=== PATIENT | male | born 1955 | race Caucasian/White ===

== ENCOUNTER 2020-09-20 11:19 | Outpatient (CLI) | payer OTHER | END 2020-09-20 11:20 | disposition home or self-care (01) | LOC: BICRAD 11:19 | PROVIDERS: ATTEND Internal Medicine | DX: Z02.71 Encounter for disability determination (principal) ==

== ENCOUNTER 2021-02-23 10:56 | Inpatient (IN) | payer OTHER ==
[2021-02-23] MEDS ORDERED: Cefepime 2 GM VIAL ONE (11:29)
[2021-02-23] MEDS ORDERED: Vancomycin 1 GM/200 ML BAG ONE (11:30)
[2021-02-23 11:58] LABS: INR-International Normal Ratio 1.1; Prothrombin Time 13.9 sec (12.0-14.7)
[2021-02-23 11:59] LABS: PTT 25.6 sec (22.9-36.1)
[2021-02-23 12:05] LABS: #Eosinphils 0.3 thou/uL (0.0-0.7); #Monocytes 0.9 thou/uL (0.11-0.59); #Neutrophils 8.3 thou/uL (1.40-6.50); %Basophils 0.4 % (0.0-1.0); %Eosinophils 2.6 % (0.0-10.0); %Lymphocytes 9.9 % (21.0-51.0); %Monocytes 8.7 % (0.0-10.0); %Neutrophils 78.5 % (42.0-75.0); Hemoglobin 12.3 g/dL (14.0-18.0); MDiff Complete? YES; Macrocytosis MODERATE=16-30 cells (100X) (0-5/hpf); Mean Corpuscular HGB CONC 31.2 g/dL (32.0-36.0); Mean Corpuscular Hemoglobin 37.1 pg (27.0-31.0); Mean Platelet Volume 7.3 fL (7.4-10.4); Platelet Count 348 thou/uL (130-400); Platelet Morphology Comment Appears Adequate; Polychromasia SLIGHT = 2-3 cells (100X) (0-2/hpf); RBC Distribution Width 14.8 % (11.5-14.5); Red Blood Cell (RBC) Count 3.33 mill/uL (4.70-6.10); White Blood Cell (WBC) Count 10.6 thou/uL (4.8-10.8)
[2021-02-23 12:23] LABS: ALT (SGPT) 36 U/L (8-55); AST (SGOT) 49 U/L (5-34); Albumin 2.1 g/dL (3.4-4.8); Alkaline Phosphatase 201 U/L (40-110); Anion Gap 16 mmol/L (10-20); BUN (Urea Nitrogen) 12 mg/dL (8.4-25.7); Bilirubin, Total 0.8 mg/dL (0.2-1.2); Calc. Creatinine Clearance 0 mL/min (70-130); Calcium 7.8 mg/dL (7.8-10.44); Carbon Dioxide 23 mmol/L (23-31); Chloride 101 mmol/L (98-107); Globulin 2.7 g/dL (2.4-3.5); Glucose 122 mg/dL (80-115); Potassium 4.3 mmol/L (3.5-5.1); Protein, Total 4.8 g/dL (5.8-8.1); Sodium 136 mmol/L (136-145)
[2021-02-23] MEDS ORDERED: Acetaminophen 500 MG TAB ONE (12:46)
[2021-02-23] MEDS ORDERED: [UNRECOGNIZED DRUG - OTHER] IV SCH (13:15)
[2021-02-23] MEDS ORDERED: MULTIVITAMINS IV SCH (13:15)
[2021-02-23] MEDS ORDERED: THIAMINE HCL IV SCH (13:15)
[2021-02-23] MEDS ORDERED: FOLIC ACID IV SCH (13:15)
[2021-02-23 14:41] LABS: Lactic Acid 3.9 mmol/L (0.5-2.2)
[2021-02-23 15:24] LABS: Bilirubin Negative (Negative); Blood, Urine Negative (Negative); Clarity Clear (Clear); Glucose, Urine (Dipstick) Normal (Negative); Ketone, Urine Negative (Negative); Leukocyte Negative Leu/uL (Negative); Nitrite Negative (Negative); Protein, Urine (Dipstick) 10 mg/dL (Neg-Trace); Specific Gravity, Urine 1.012 (1.002-1.036)
[2021-02-23] MEDS ORDERED: Electrolyte Replacement Protocol 1 EACH FS SCH (17:15)
[2021-02-23 17:29] LABS: Magnesium 1.1 mg/dL (1.6-2.6); Phosphorus 3.3 mg/dL (2.3-4.7)
[2021-02-23] MEDS ORDERED: Electrolyte Replacement Protocol FS PRN (18:00)
[2021-02-23] MEDS ORDERED: Magnesium Sulfate 4 GM in Sodium Chloride 0.9% 250 ML 250 ML IVPB SCH (18:00)
[2021-02-23 19:02] LABS: SARS-CoV-2 NAA Rapid Test Not Detected (NotDetected)
[2021-02-23] MEDS ORDERED: Lorazepam 1 MG TAB PO PRN (19:59)
[2021-02-23] MEDS: Sodium Chloride 0.9% 1,000 ML IV SCH (20:04)
[2021-02-23] MEDS ORDERED: Norepinephrine 8 MG/0.9% NS 250 ML ONE (20:06)
[2021-02-23] MEDS ORDERED: Thiamine HCl 200 MG/2 ML VIAL IM SCH (20:15)
[2021-02-23 20:53] LABS: Troponin I 0.016 ng/mL (< 0.028)
[2021-02-23] MEDS ORDERED: Ketamine 50 MG/ML (10ML VIAL) ONE (21:08)
[2021-02-23] MEDS: Norepinephrine 8 MG/0.9% NS 250 ML IVPB SCH (21:48)
[2021-02-23 22:35] LABS: #Basophils 0.1 thou/uL (0.0-0.2); #Eosinphils 0.3 thou/uL (0.0-0.7); #Lymphocytes 1.3 thou/uL (1.20-3.40); #Monocytes 1.1 thou/uL (0.11-0.59); #Neutrophils 8.4 thou/uL (1.40-6.50); %Basophils 0.5 % (0.0-1.0); %Eosinophils 2.4 % (0.0-10.0); %Lymphocytes 11.8 % (21.0-51.0); %Monocytes 9.7 % (0.0-10.0); %Neutrophils 75.6 % (42.0-75.0); Hemoglobin 10.9 g/dL (14.0-18.0); Mean Corpuscular Hemoglobin 38.2 pg (27.0-31.0); Mean Platelet Volume 7.4 fL (7.4-10.4); Platelet Count 337 thou/uL (130-400); RBC Distribution Width 14.5 % (11.5-14.5); Red Blood Cell (RBC) Count 2.85 mill/uL (4.70-6.10); White Blood Cell (WBC) Count 11.1 thou/uL (4.8-10.8)
[2021-02-23 22:54] LABS: Anion Gap 12 mmol/L (10-20); BUN (Urea Nitrogen) 14 mg/dL (8.4-25.7); Calc. Creatinine Clearance 123 mL/min (70-130); Carbon Dioxide 25 mmol/L (23-31); Chloride 103 mmol/L (98-107); Glucose 130 mg/dL (80-115); Potassium 4.3 mmol/L (3.5-5.1); Sodium 136 mmol/L (136-145)
[2021-02-23 23:51] LABS: Troponin I Less than 0.010 ng/mL (< 0.028)
[2021-02-24] MEDS: Cefepime 2 GM in Sodium Chloride 0.9% 100 ML IVPB SCH ×3 (01:31→23:44)
[2021-02-24] MEDS: Atorvastatin Calcium 40 MG TAB PO SCH ×2 (01:32→20:06)
[2021-02-24] MEDS: VANCOMYCIN 2 GRAM/400 ML BAG 2 GM in Premix Bag 1 BAG IVPB SCH ×2 (02:36→15:06)
[2021-02-24] MEDS: Sodium Chloride 0.9% 1,000 ML IV SCH ×3 (02:39→20:07)
[2021-02-24] MEDS: Norepinephrine 8 MG/0.9% NS 250 ML IVPB SCH ×4 (03:50→20:08)
[2021-02-24 04:11] LABS: #Basophils 0.1 thou/uL (0.0-0.2); #Eosinphils 0.1 thou/uL (0.0-0.7); #Lymphocytes 1.8 thou/uL (1.20-3.40); #Monocytes 1.3 thou/uL (0.11-0.59); #Neutrophils 11.3 thou/uL (1.40-6.50); %Basophils 0.5 % (0.0-1.0); %Lymphocytes 12.3 % (21.0-51.0); %Monocytes 8.9 % (0.0-10.0); %Neutrophils 77.3 % (42.0-75.0); Hemoglobin 11.7 g/dL (14.0-18.0); Mean Corpuscular HGB CONC 32.2 g/dL (32.0-36.0); Mean Corpuscular Hemoglobin 38.8 pg (27.0-31.0); Mean Platelet Volume 7.7 fL (7.4-10.4); Platelet Count 416 thou/uL (130-400); RBC Distribution Width 14.6 % (11.5-14.5); Red Blood Cell (RBC) Count 3.01 mill/uL (4.70-6.10); White Blood Cell (WBC) Count 14.6 thou/uL (4.8-10.8)
[2021-02-24 04:16] LABS: Hemoglobin A1c 4.8 % (4.0-6.0)
[2021-02-24 04:45] LABS: ALT (SGPT) 39 U/L (8-55); AST (SGOT) 43 U/L (5-34); Albumin 2.2 g/dL (3.4-4.8); Alkaline Phosphatase 209 U/L (40-110); Anion Gap 15 mmol/L (10-20); BUN (Urea Nitrogen) 15 mg/dL (8.4-25.7); Bilirubin, Total 0.7 mg/dL (0.2-1.2); Calc. Creatinine Clearance 97 mL/min (70-130); Calcium 7.4 mg/dL (7.8-10.44); Carbon Dioxide 22 mmol/L (23-31); Chloride 101 mmol/L (98-107); Globulin 2.7 g/dL (2.4-3.5); Glucose 195 mg/dL (80-115); Magnesium 1.7 mg/dL (1.6-2.6); Phosphorus 4.2 mg/dL (2.3-4.7); Potassium 4.3 mmol/L (3.5-5.1); Protein, Total 4.9 g/dL (5.8-8.1); Sodium 134 mmol/L (136-145)
[2021-02-24] MEDS ORDERED: Magnesium 2 GM/50 ML 2 GM in Premix Bag 1 BAG IVPB SCH (06:30)
[2021-02-24] MEDS: Enoxaparin Sodium 40 MG/0.4 ML SYRINGE SC SCH (08:04)
[2021-02-24] MEDS: Folic Acid 1 MG TAB PO SCH (08:04)
[2021-02-24] MEDS: Multivitamin W/ Minerals 1 TAB PO SCH (08:04)
[2021-02-24] MEDS: Magnesium Oxide 400 MG TAB PO SCH (08:04)
[2021-02-24] MEDS: Lorazepam 0.5 MG TAB PO PRN (08:04)
[2021-02-24] MEDS ORDERED: Diazepam 10 MG/2 ML SYRINGE IVP SCH ×4 (08:30→21:00)
[2021-02-24] MEDS ORDERED: Thiamine 100 MG TAB PO SCH (09:00)
[2021-02-24] MEDS ORDERED: Dextrose 5% in Water 1,000 ML IV PRN (09:08)
[2021-02-24] MEDS ORDERED: Dextrose 50% Abboject 50 ML SYRINGE SLOW IVP PRN (09:08)
[2021-02-24] MEDS ORDERED: Hydrocortisone Sod Succ/PF 100 mg/2 ml Vial IVP SCH (09:15)
[2021-02-24] MEDS: Hydrocortisone Sod Succ/PF 100 mg/2 ml Vial IVP SCH ×3 (10:04→20:07)
[2021-02-24] MEDS ORDERED: Pantoprazole 40 MG VIAL IVP SCH (11:00)
[2021-02-24] MEDS: HumaLOG 300 UNITS/3 ML VIAL SC PRN ×2 (11:43→17:34)
[2021-02-25 00:29] LABS: Vancomycin, Trough 23.9 ug/mL
[2021-02-25] MEDS: traMADol HCl 50 MG TAB PO PRN (00:44)
[2021-02-25] MEDS: VANCOMYCIN 2 GRAM/400 ML BAG 2 GM in Premix Bag 1 BAG IVPB SCH ×2 (00:45→00:50)
[2021-02-25] MEDS: Hydrocortisone Sod Succ/PF 100 mg/2 ml Vial IVP SCH ×4 (02:34→22:23)
[2021-02-25] MEDS: Vancomycin 1.5 GRAM/300 ML BAG 1.5 GM in Premix Bag 1 BAG IVPB SCH ×2 (02:34→22:20)
[2021-02-25] MEDS: Lorazepam 0.5 MG TAB PO PRN (02:34)
[2021-02-25] MEDS: Sodium Chloride 0.9% 1,000 ML IV SCH ×3 (02:35→22:21)
[2021-02-25 05:02] LABS: #Lymphocytes 0.7 thou/uL (1.20-3.40); #Monocytes 0.5 thou/uL (0.11-0.59); #Neutrophils 7.5 thou/uL (1.40-6.50); %Basophils 0.1 % (0.0-1.0); %Eosinophils 0.2 % (0.0-10.0); %Lymphocytes 7.8 % (21.0-51.0); %Neutrophils 85.9 % (42.0-75.0); Hemoglobin 9.9 g/dL (14.0-18.0); Mean Corpuscular HGB CONC 31.7 g/dL (32.0-36.0); Platelet Count 343 thou/uL (130-400); RBC Distribution Width 14.3 % (11.5-14.5); Red Blood Cell (RBC) Count 2.61 mill/uL (4.70-6.10); White Blood Cell (WBC) Count 8.7 thou/uL (4.8-10.8)
[2021-02-25 05:21] LABS: ALT (SGPT) 34 U/L (8-55); AST (SGOT) 34 U/L (5-34); Albumin 2.1 g/dL (3.4-4.8); Alkaline Phosphatase 187 U/L (40-110); Anion Gap 14 mmol/L (10-20); BUN (Urea Nitrogen) 20 mg/dL (8.4-25.7); Bilirubin, Total 0.5 mg/dL (0.2-1.2); Calc. Creatinine Clearance 81 mL/min (70-130); Carbon Dioxide 22 mmol/L (23-31); Chloride 107 mmol/L (98-107); Globulin 2.4 g/dL (2.4-3.5); Glucose 193 mg/dL (80-115); Magnesium 1.9 mg/dL (1.6-2.6); Phosphorus 4.3 mg/dL (2.3-4.7); Potassium 4.8 mmol/L (3.5-5.1); Protein, Total 4.5 g/dL (5.8-8.1); Sodium 138 mmol/L (136-145)
[2021-02-25] MEDS ORDERED: Diazepam 10 MG/2 ML SYRINGE IVP SCH (06:00)
[2021-02-25] MEDS ORDERED: Magnesium 2 GM/50 ML 2 GM in Premix Bag 1 BAG IVPB SCH (06:45)
[2021-02-25] MEDS: Enoxaparin Sodium 40 MG/0.4 ML SYRINGE SC SCH (09:24)
[2021-02-25] MEDS: Magnesium Oxide 400 MG TAB PO SCH (09:24)
[2021-02-25] MEDS: Multivitamin W/ Minerals 1 TAB PO SCH (09:25)
[2021-02-25] MEDS: Folic Acid 1 MG TAB PO SCH (09:25)
[2021-02-25] MEDS: Thiamine 100 MG TAB PO SCH (09:25)
[2021-02-25] MEDS: Pantoprazole 40 MG VIAL IVP SCH (09:28)
[2021-02-25] MEDS: Diazepam 10 MG/2 ML SYRINGE IVP SCH (09:38)
[2021-02-25] MEDS ORDERED: Midodrine HCl 5 MG TAB PO SCH (12:50)
[2021-02-25] MEDS: Midodrine HCl 5 MG TAB PO SCH (20:58)
[2021-02-25] MEDS: Atorvastatin Calcium 40 MG TAB PO SCH (20:58)
[2021-02-25] MEDS: Cefepime 2 GM in Sodium Chloride 0.9% 100 ML IVPB SCH ×2 (22:20→23:28)
[2021-02-26] MEDS: Midodrine HCl 5 MG TAB PO SCH ×2 (09:00→21:27)
[2021-02-26] MEDS: Enoxaparin Sodium 40 MG/0.4 ML SYRINGE SC SCH (09:00)
[2021-02-26] MEDS: Pantoprazole 40 MG VIAL IVP SCH (09:00)
[2021-02-26] MEDS: Hydrocortisone Sod Succ/PF 100 mg/2 ml Vial IVP SCH (09:00)
[2021-02-26] MEDS: Thiamine 100 MG TAB PO SCH (09:00)
[2021-02-26] MEDS: Multivitamin W/ Minerals 1 TAB PO SCH ×3 (09:00→11:27)
[2021-02-26] MEDS: Magnesium Oxide 400 MG TAB PO SCH (09:00)
[2021-02-26] MEDS: Folic Acid 1 MG TAB PO SCH (09:00)
[2021-02-26 09:04] LABS: Mean Corpuscular HGB CONC 32.1 g/dL (32.0-36.0); Mean Corpuscular Hemoglobin 38.6 pg (27.0-31.0); Mean Platelet Volume 6.9 fL (7.4-10.4); Platelet Count 345 thou/uL (130-400); RBC Distribution Width 14.5 % (11.5-14.5); Red Blood Cell (RBC) Count 2.84 mill/uL (4.70-6.10); White Blood Cell (WBC) Count 8.5 thou/uL (4.8-10.8)
[2021-02-26 09:50] LABS: Band 4 % (5-11); Lymphocytes 13 % (21-51); MDiff Complete? YES; Monocytes 8 % (0-10); Neutrophil 75 % (42-75); Platelet Morphology Comment Appears Adequate; Vacuoles SLIGHT
[2021-02-26 10:03] LABS: ALT (SGPT) 38 U/L (8-55); AST (SGOT) 45 U/L (5-34); Albumin 2.3 g/dL (3.4-4.8); Alkaline Phosphatase 183 U/L (40-110); BUN (Urea Nitrogen) 25 mg/dL (8.4-25.7); Bilirubin, Total 0.5 mg/dL (0.2-1.2); Calc. Creatinine Clearance 89 mL/min (70-130); Calcium 7.7 mg/dL (7.8-10.44); Carbon Dioxide 15 mmol/L (23-31); Chloride 113 mmol/L (98-107); Globulin 3.1 g/dL (2.4-3.5); Glucose 133 mg/dL (80-115); Magnesium 2.4 mg/dL (1.6-2.6); Phosphorus 4.6 mg/dL (2.3-4.7); Potassium 4.7 mmol/L (3.5-5.1); Protein, Total 5.4 g/dL (5.8-8.1); Sodium 139 mmol/L (136-145)
[2021-02-26 10:36] LABS: Anion Gap 16 mmol/L (10-20)
[2021-02-26] MEDS: Sodium Chloride 0.9% 1,000 ML IV SCH ×3 (11:19→21:28)
[2021-02-26] MEDS: Diazepam 10 MG/2 ML SYRINGE IVP SCH (11:49)
[2021-02-26] MEDS: Cefepime 2 GM in Sodium Chloride 0.9% 100 ML IVPB SCH ×2 (11:52→23:57)
[2021-02-26 15:40] LABS: Vancomycin, Trough 34.5 ug/mL
[2021-02-26] MEDS: Vancomycin 1.5 GRAM/300 ML BAG 1.5 GM in Premix Bag 1 BAG IVPB SCH ×2 (15:52→20:07)
[2021-02-26] MEDS ORDERED: Vancomycin 1.5 GRAM/300 ML BAG 1.5 GM in Premix Bag 1 BAG IVPB SCH (16:30)
[2021-02-26] MEDS: Atorvastatin Calcium 40 MG TAB PO SCH (21:27)
[2021-02-26] MEDS ORDERED: Lorazepam 2 MG/ML VIAL SLOW IVP SCH (22:15)
[2021-02-26] MEDS ORDERED: Lorazepam 2 MG/ML VIAL ONE (22:59)
[2021-02-27] MEDS: Sodium Chloride 0.9% 1,000 ML IV SCH ×3 (04:52→22:03)
[2021-02-27 06:26] LABS: #Eosinphils 0.2 thou/uL (0.0-0.7); #Lymphocytes 1.1 thou/uL (1.20-3.40); #Monocytes 0.8 thou/uL (0.11-0.59); #Neutrophils 4.5 thou/uL (1.40-6.50); %Basophils 0.6 % (0.0-1.0); %Eosinophils 2.8 % (0.0-10.0); %Lymphocytes 16.2 % (21.0-51.0); %Monocytes 11.6 % (0.0-10.0); %Neutrophils 68.7 % (42.0-75.0); Mean Corpuscular HGB CONC 32.3 g/dL (32.0-36.0); Mean Corpuscular Hemoglobin 38.9 pg (27.0-31.0); Mean Platelet Volume 6.7 fL (7.4-10.4); Platelet Count 347 thou/uL (130-400); RBC Distribution Width 14.7 % (11.5-14.5); Red Blood Cell (RBC) Count 2.57 mill/uL (4.70-6.10); White Blood Cell (WBC) Count 6.5 thou/uL (4.8-10.8)
[2021-02-27 06:47] LABS: ALT (SGPT) 43 U/L (8-55); AST (SGOT) 48 U/L (5-34); Albumin 2.2 g/dL (3.4-4.8); Alkaline Phosphatase 149 U/L (40-110); Anion Gap 9 mmol/L (10-20); BUN (Urea Nitrogen) 25 mg/dL (8.4-25.7); Bilirubin, Total 0.4 mg/dL (0.2-1.2); Calc. Creatinine Clearance 118 mL/min (70-130); Calcium 7.9 mg/dL (7.8-10.44); Carbon Dioxide 24 mmol/L (23-31); Chloride 112 mmol/L (98-107); Globulin 2.3 g/dL (2.4-3.5); Glucose 91 mg/dL (80-115); Magnesium 2.3 mg/dL (1.6-2.6); Phosphorus 4.2 mg/dL (2.3-4.7); Potassium 3.9 mmol/L (3.5-5.1); Protein, Total 4.5 g/dL (5.8-8.1); Sodium 141 mmol/L (136-145)
[2021-02-27] MEDS: Thiamine 100 MG TAB PO SCH (11:32)
[2021-02-27] MEDS: Multivitamin W/ Minerals 1 TAB PO SCH (11:32)
[2021-02-27] MEDS: Magnesium Oxide 400 MG TAB PO SCH (11:32)
[2021-02-27] MEDS: Folic Acid 1 MG TAB PO SCH (11:32)
[2021-02-27] MEDS: Midodrine HCl 5 MG TAB PO SCH (11:33)
[2021-02-27] MEDS: Enoxaparin Sodium 40 MG/0.4 ML SYRINGE SC SCH (11:34)
[2021-02-27] MEDS: Cefepime 2 GM in Sodium Chloride 0.9% 100 ML IVPB SCH (12:00)
[2021-02-27] MEDS: traMADol HCl 50 MG TAB PO PRN (14:48)
[2021-02-27 15:23] LABS: Vancomycin, Trough 23.1 ug/mL
[2021-02-27 16:21] LABS: Actual Bicarbonate (HCO3a) 23.4 mEq/L (22-28); CO2 Tension 42.4 mmHg (35.0-45.0); Carboxyhemoglobin (COHb) 0.3 gm% (0.0-3.0); Hemoglobin (Hb) 10.7 g/dL (14.0-18.0); O2 Tension (PaO2), arterial 66.4 mmHg (> 80.0); Potassium - ABG Lab 3.61 mmol/L (3.70-5.30); pH, Arterial 7.36 (7.35-7.45)
[2021-02-27 16:26] LABS: Puncture Site RRA
[2021-02-27] MEDS: Vancomycin 1 GM in Premix Bag 1 BAG IVPB SCH (17:00)
[2021-02-27] MEDS: Atorvastatin Calcium 40 MG TAB PO SCH (22:00)
[2021-02-28] MEDS: Cefepime 2 GM in Sodium Chloride 0.9% 100 ML IVPB SCH (01:14)
[2021-02-28] MEDS: Sodium Chloride 0.9% 1,000 ML IV SCH ×2 (03:45→15:18)
[2021-02-28] MEDS: Vancomycin 1 GM in Premix Bag 1 BAG IVPB SCH (04:33)
[2021-02-28 06:02] LABS: #Eosinphils 0.7 thou/uL (0.0-0.7); #Lymphocytes 1.2 thou/uL (1.20-3.40); #Monocytes 0.6 thou/uL (0.11-0.59); #Neutrophils 5.2 thou/uL (1.40-6.50); %Basophils 0.4 % (0.0-1.0); %Eosinophils 8.6 % (0.0-10.0); %Lymphocytes 15.7 % (21.0-51.0); %Monocytes 8.2 % (0.0-10.0); %Neutrophils 67.1 % (42.0-75.0); Hemoglobin 10.3 g/dL (14.0-18.0); Mean Corpuscular HGB CONC 31.7 g/dL (32.0-36.0); Mean Corpuscular Hemoglobin 37.8 pg (27.0-31.0); Mean Platelet Volume 6.7 fL (7.4-10.4); Platelet Count 406 thou/uL (130-400); RBC Distribution Width 14.6 % (11.5-14.5); Red Blood Cell (RBC) Count 2.74 mill/uL (4.70-6.10); White Blood Cell (WBC) Count 7.7 thou/uL (4.8-10.8)
[2021-02-28 06:32] LABS: ALT (SGPT) 59 U/L (8-55); AST (SGOT) 62 U/L (5-34); Albumin 2.2 g/dL (3.4-4.8); Alkaline Phosphatase 154 U/L (40-110); Anion Gap 8 mmol/L (10-20); BUN (Urea Nitrogen) 24 mg/dL (8.4-25.7); Bilirubin, Total 0.4 mg/dL (0.2-1.2); Calc. Creatinine Clearance 143 mL/min (70-130); Calcium 8.4 mg/dL (7.8-10.44); Carbon Dioxide 24 mmol/L (23-31); Chloride 113 mmol/L (98-107); Globulin 2.6 g/dL (2.4-3.5); Glucose 116 mg/dL (80-115); Potassium 3.9 mmol/L (3.5-5.1); Protein, Total 4.8 g/dL (5.8-8.1); Sodium 141 mmol/L (136-145)
[2021-02-28] MEDS: Folic Acid 1 MG TAB PO SCH ×2 (09:02→09:40)
[2021-02-28] MEDS: Magnesium Oxide 400 MG TAB PO SCH (09:02)
[2021-02-28] MEDS: Thiamine 100 MG TAB PO SCH ×2 (09:02→09:42)
[2021-02-28] MEDS: Enoxaparin Sodium 40 MG/0.4 ML SYRINGE SC SCH (09:12)
[2021-02-28] MEDS ORDERED: Morphine 2 MG/ML VIAL SLOW IVP SCH (14:45)
[2021-02-28] MEDS: Atorvastatin Calcium 40 MG TAB PO SCH (20:25)
[2021-02-28] MEDS: Morphine 2 MG/ML VIAL SLOW IVP PRN (21:45)
[2021-03-01] MEDS: Sodium Chloride 0.9% 1,000 ML IV SCH (04:12)
[2021-03-01] MEDS: Morphine 2 MG/ML VIAL SLOW IVP PRN ×3 (05:19→15:17)
[2021-03-01 07:17] LABS: ALT (SGPT) 59 U/L (8-55); AST (SGOT) 57 U/L (5-34); Albumin 2.3 g/dL (3.4-4.8); Alkaline Phosphatase 158 U/L (40-110); Anion Gap 12 mmol/L (10-20); BUN (Urea Nitrogen) 19 mg/dL (8.4-25.7); Bilirubin, Total 0.5 mg/dL (0.2-1.2); Calc. Creatinine Clearance 259 mL/min (70-130); Calcium 8.2 mg/dL (7.8-10.44); Carbon Dioxide 22 mmol/L (23-31); Chloride 114 mmol/L (98-107); Globulin 2.4 g/dL (2.4-3.5); Glucose 86 mg/dL (80-115); Potassium 4.1 mmol/L (3.5-5.1); Protein, Total 4.7 g/dL (5.8-8.1); Sodium 144 mmol/L (136-145)
[2021-03-01] MEDS ORDERED: Furosemide 40 MG/4 ML VIAL SLOW IVP SCH (08:45)
[2021-03-01] MEDS: Enoxaparin Sodium 40 MG/0.4 ML SYRINGE SC SCH (09:08)
[2021-03-01] MEDS: Magnesium Oxide 400 MG TAB PO SCH (09:08)
[2021-03-01] MEDS: Folic Acid 1 MG TAB PO SCH (09:08)
[2021-03-01] MEDS: Thiamine HCl 200 MG/2 ML VIAL SLOW IVP SCH (11:31)
[2021-03-01] MEDS: Furosemide 40 MG/4 ML VIAL SLOW IVP SCH (15:17)
[2021-03-01] MEDS: Mirtazapine 30 MG TAB PO SCH (19:55)
[2021-03-01] MEDS: Atorvastatin Calcium 40 MG TAB PO SCH (19:56)
[2021-03-02] MEDS: Furosemide 40 MG/4 ML VIAL SLOW IVP SCH (04:34)
[2021-03-02] MEDS: Multivitamin W/ Minerals 1 TAB PO SCH (10:27)
[2021-03-02] MEDS: Enoxaparin Sodium 40 MG/0.4 ML SYRINGE SC SCH (10:27)
[2021-03-02] MEDS: Folic Acid 1 MG TAB PO SCH (10:28)
[2021-03-02] MEDS: Magnesium Oxide 400 MG TAB PO SCH (10:28)
[2021-03-02] MEDS: Thiamine HCl 200 MG/2 ML VIAL SLOW IVP SCH (10:28)
[2021-03-02] MEDS: Sodium Chloride 0.9% 1,000 ML IV SCH (11:01)
[2021-03-02] MEDS ORDERED: Lorazepam 2 MG/ML VIAL SLOW IVP PRN (11:48)
[2021-03-02] MEDS: Morphine 2 MG/ML VIAL SLOW IVP PRN (14:03)
[2021-03-02] MEDS ORDERED: Bisacodyl 10 MG SUPP PR SCH (19:30)
[2021-03-02] MEDS: Atorvastatin Calcium 40 MG TAB PO SCH (19:52)
[2021-03-02] MEDS: Senokot S 8.6-50 MG TAB PO SCH (19:52)
[2021-03-02] MEDS: Mirtazapine 30 MG TAB PO SCH (19:53)
[2021-03-02] MEDS: traMADol HCl 50 MG TAB PO PRN (19:55)
[2021-03-03 07:22] LABS: ALT (SGPT) 46 U/L (8-55); AST (SGOT) 36 U/L (5-34); Albumin 2.1 g/dL (3.4-4.8); Alkaline Phosphatase 140 U/L (40-110); Anion Gap 8 mmol/L (10-20); BUN (Urea Nitrogen) 16 mg/dL (8.4-25.7); Bilirubin, Total 0.4 mg/dL (0.2-1.2); Calc. Creatinine Clearance 279 mL/min (70-130); Carbon Dioxide 28 mmol/L (23-31); Chloride 112 mmol/L (98-107); Globulin 2.3 g/dL (2.4-3.5); Glucose 111 mg/dL (80-115); Potassium 3.3 mmol/L (3.5-5.1); Protein, Total 4.4 g/dL (5.8-8.1); Sodium 145 mmol/L (136-145)
[2021-03-03] MEDS ORDERED: Potassium Chloride 20 MEQ TAB PO SCH ×2 (08:00→10:45)
[2021-03-03] MEDS: Enoxaparin Sodium 40 MG/0.4 ML SYRINGE SC SCH (09:32)
[2021-03-03] MEDS: Multivitamin W/ Minerals 1 TAB PO SCH (09:33)
[2021-03-03] MEDS: Magnesium Oxide 400 MG TAB PO SCH (09:33)
[2021-03-03] MEDS: Senokot S 8.6-50 MG TAB PO SCH ×2 (09:33→22:04)
[2021-03-03] MEDS: Furosemide 40 MG/4 ML VIAL SLOW IVP SCH (09:34)
[2021-03-03] MEDS: Folic Acid 1 MG TAB PO SCH (09:34)
[2021-03-03] MEDS: Thiamine HCl 200 MG/2 ML VIAL SLOW IVP SCH (09:43)
[2021-03-03 14:17] LABS: SARS-CoV-2 PCR by NAA Not Detected (NotDetected)
[2021-03-03] MEDS: traMADol HCl 50 MG TAB PO PRN ×2 (15:01→21:46)
[2021-03-03] MEDS: Atorvastatin Calcium 40 MG TAB PO SCH (21:45)
[2021-03-03] MEDS: Mirtazapine 30 MG TAB PO SCH (21:46)
[2021-03-04] MEDS: Thiamine HCl 200 MG/2 ML VIAL SLOW IVP SCH (10:15)
[2021-03-04] MEDS: Multivitamin W/ Minerals 1 TAB PO SCH (10:15)
[2021-03-04] MEDS: Furosemide 40 MG/4 ML VIAL SLOW IVP SCH (10:15)
[2021-03-04] MEDS: Enoxaparin Sodium 40 MG/0.4 ML SYRINGE SC SCH (10:15)
[2021-03-04] MEDS: Folic Acid 1 MG TAB PO SCH (10:15)
[2021-03-04] MEDS: Senokot S 8.6-50 MG TAB PO SCH ×2 (12:09→22:21)
[2021-03-04] MEDS: Magnesium Oxide 400 MG TAB PO SCH (12:09)
[2021-03-04] MEDS: traMADol HCl 50 MG TAB PO PRN ×2 (13:36→21:39)
[2021-03-04] MEDS: Mirtazapine 30 MG TAB PO SCH (21:39)
[2021-03-04] MEDS: Atorvastatin Calcium 40 MG TAB PO SCH (21:39)
[2021-03-05] MEDS: Furosemide 20 MG/2 ML VIAL SLOW IVP SCH ×2 (05:41→14:00)
[2021-03-05] MEDS: traMADol HCl 50 MG TAB PO PRN ×2 (05:47→20:49)
[2021-03-05 06:39] LABS: Anion Gap 11 mmol/L (10-20); BUN (Urea Nitrogen) 17 mg/dL (8.4-25.7); Calc. Creatinine Clearance 270 mL/min (70-130); Calcium 7.9 mg/dL (7.8-10.44); Carbon Dioxide 26 mmol/L (23-31); Chloride 110 mmol/L (98-107); Glucose 116 mg/dL (80-115); Potassium 3.5 mmol/L (3.5-5.1); Sodium 143 mmol/L (136-145)
[2021-03-05] MEDS ORDERED: Potassium Chloride 20 MEQ TAB PO SCH (07:15)
[2021-03-05] MEDS: Thiamine 100 MG TAB PO SCH (10:24)
[2021-03-05] MEDS: Magnesium Oxide 400 MG TAB PO SCH (10:24)
[2021-03-05] MEDS: Enoxaparin Sodium 40 MG/0.4 ML SYRINGE SC SCH (10:24)
[2021-03-05] MEDS: Folic Acid 1 MG TAB PO SCH (10:24)
[2021-03-05] MEDS: Senokot S 8.6-50 MG TAB PO SCH ×2 (10:25→20:50)
[2021-03-05] MEDS: Multivitamin W/ Minerals 1 TAB PO SCH (10:25)
[2021-03-05] MEDS: Atorvastatin Calcium 40 MG TAB PO SCH (20:49)
[2021-03-05] MEDS: Mirtazapine 30 MG TAB PO SCH (20:50)
[2021-03-06] MEDS: Furosemide 20 MG/2 ML VIAL SLOW IVP SCH ×2 (05:41→14:43)
[2021-03-06] MEDS: Morphine 2 MG/ML VIAL SLOW IVP PRN ×2 (05:41→20:50)
[2021-03-06] MEDS: Enoxaparin Sodium 40 MG/0.4 ML SYRINGE SC SCH (09:43)
[2021-03-06] MEDS: Folic Acid 1 MG TAB PO SCH (09:44)
[2021-03-06] MEDS: Magnesium Oxide 400 MG TAB PO SCH (09:44)
[2021-03-06] MEDS: traMADol HCl 50 MG TAB PO PRN (09:44)
[2021-03-06] MEDS: Multivitamin W/ Minerals 1 TAB PO SCH (09:44)
[2021-03-06] MEDS: Senokot S 8.6-50 MG TAB PO SCH ×2 (09:44→20:50)
[2021-03-06] MEDS: Thiamine 100 MG TAB PO SCH (09:44)
[2021-03-06] MEDS: Atorvastatin Calcium 40 MG TAB PO SCH (20:49)
[2021-03-06] MEDS: Mirtazapine 30 MG TAB PO SCH (20:50)
[2021-03-07] MEDS: Furosemide 20 MG/2 ML VIAL SLOW IVP SCH ×2 (04:44→15:09)
[2021-03-07 06:59] LABS: #Basophils 0.1 thou/uL (0.0-0.2); #Eosinphils 0.3 thou/uL (0.0-0.7); #Monocytes 1.4 thou/uL (0.11-0.59); #Neutrophils 7.5 thou/uL (1.40-6.50); %Basophils 0.7 % (0.0-1.0); %Eosinophils 2.8 % (0.0-10.0); %Monocytes 12.2 % (0.0-10.0); %Neutrophils 66.3 % (42.0-75.0); Hemoglobin 10.3 g/dL (14.0-18.0); Mean Corpuscular HGB CONC 32.2 g/dL (32.0-36.0); Mean Corpuscular Hemoglobin 37.9 pg (27.0-31.0); Mean Platelet Volume 7.8 fL (7.4-10.4); Platelet Count 449 thou/uL (130-400); RBC Distribution Width 14.5 % (11.5-14.5); Red Blood Cell (RBC) Count 2.71 mill/uL (4.70-6.10); White Blood Cell (WBC) Count 11.2 thou/uL (4.8-10.8)
[2021-03-07 07:13] LABS: Anion Gap 14 mmol/L (10-20); BUN (Urea Nitrogen) 18 mg/dL (8.4-25.7); Calc. Creatinine Clearance 266 mL/min (70-130); Calcium 7.5 mg/dL (7.8-10.44); Carbon Dioxide 28 mmol/L (23-31); Chloride 104 mmol/L (98-107); Glucose 83 mg/dL (80-115); Potassium 3.6 mmol/L (3.5-5.1); Sodium 142 mmol/L (136-145)
[2021-03-07] MEDS: Enoxaparin Sodium 40 MG/0.4 ML SYRINGE SC SCH (08:44)
[2021-03-07] MEDS: Senokot S 8.6-50 MG TAB PO SCH ×2 (08:44→20:21)
[2021-03-07] MEDS: Folic Acid 1 MG TAB PO SCH (08:44)
[2021-03-07] MEDS: Magnesium Oxide 400 MG TAB PO SCH (08:44)
[2021-03-07] MEDS: Thiamine 100 MG TAB PO SCH (08:44)
[2021-03-07] MEDS: Multivitamin W/ Minerals 1 TAB PO SCH (08:44)
[2021-03-07] MEDS: traMADol HCl 50 MG TAB PO PRN ×2 (14:25→20:24)
[2021-03-07 15:16] VITALS: BMI 54.2
[2021-03-07] MEDS: Atorvastatin Calcium 40 MG TAB PO SCH (20:21)
[2021-03-07] MEDS: Mirtazapine 30 MG TAB PO SCH (20:21)
[2021-03-08] MEDS ORDERED: Lisinopril 20 MG TAB PO SCH (09:00)
[2021-03-08] MEDS: Enoxaparin Sodium 40 MG/0.4 ML SYRINGE SC SCH (09:02)
[2021-03-08] MEDS: Thiamine 100 MG TAB PO SCH (09:02)
[2021-03-08] MEDS: Folic Acid 1 MG TAB PO SCH (09:02)
[2021-03-08] MEDS: Senokot S 8.6-50 MG TAB PO SCH (09:02)
[2021-03-08] MEDS: Magnesium Oxide 400 MG TAB PO SCH (09:02)
[2021-03-08] MEDS: Multivitamin W/ Minerals 1 TAB PO SCH (09:03)
[2021-03-08 11:46] VITALS: BP 105/73; TEMP 98.2
== END 2021-03-08 15:50 | DRG 871 ==
LOC: ERS 10:56 → ERHOLD 16:39 → OBSVTOIN 16:39 → CCU 02-24 01:03 → SURG A 02-25 17:26
PROVIDERS: ADMIT Internal Medicine; ATTEND Internal Medicine
PROC: 06HY33Z Insertion of Infusion Device into Lower Vein, Percutaneous Approach (ICD-10-PCS; principal; 2021-02-23)
PROC: 3E033XZ Introduction of Vasopressor into Peripheral Vein, Percutaneous Approach (ICD-10-PCS; 2021-02-23)
PROC: HZ2ZZZZ Detoxification Services for Substance Abuse Treatment (ICD-10-PCS; 2021-02-23)
DX: A41.9 Sepsis, unspecified organism (principal); G93.41 Metabolic encephalopathy; R57.1 Hypovolemic shock; F10.139 Alcohol abuse with withdrawal, unspecified; Z68.43 Body mass index [BMI] 50.0-59.9, adult; E87.2 Acidosis; Z66 Do not resuscitate; Z20.822 Contact with and (suspected) exposure to COVID-19; I10 Essential (primary) hypertension; E78.5 Hyperlipidemia, unspecified; G47.33 Obstructive sleep apnea (adult) (pediatric); D50.0 Iron deficiency anemia secondary to blood loss (chronic); E11.69 Type 2 diabetes mellitus with other specified complication; E66.9 Obesity, unspecified; E78.00 Pure hypercholesterolemia, unspecified; E86.0 Dehydration; G93.89 Other specified disorders of brain; Z98.890 Other specified postprocedural states; Z87.891 Personal history of nicotine dependence; Z98.84 Bariatric surgery status; Z79.84 Long term (current) use of oral hypoglycemic drugs; Z79.899 Other long term (current) drug therapy
CPT/HCPCS: 0240U; 36415; 36416; 36600; 70450; 71045; 80048; 80053; 80202; 81003; 82140; 82533; 82805; 83036; 83605; 83735; 83880; 84100; 84484; 85025; 85610; 85730; 87040; 87086; 93005; 93306; 93880; 94660; 95712; 95819; 95957; C9113; G0378; J0692; J1650; J1720; J1815; J1940; J2060; J2270; J3360; J3370; J3411; J3475; J3490; J7042; J7050; U0003; U0005